=== PATIENT | female | born 1955 | race Caucasian/White ===

== ENCOUNTER → 2022-09-11 | Outpatient (CLI) | payer MEDICARE, SELFPAY ==
--- NOTE | 2022-09-11 17:35 | MRI_ITS ---
STUDY: MRI BRAIN WITH AND WITHOUT CONTRAST REASON FOR EXAM: Female, 67 years old. 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 IV 20mL CLARISCAN was administered for the contrast portion of the examination. COMPARISON: None. FINDINGS: Normal size of the ventricles and extra-axial spaces for the patient''s age. Mild periventricular white matter ischemic changes without mass effect or restricted diffusion. Normal bilateral basal ganglia. Normal thalami. There is no extra-axial fluid accumulation. Normal flow voids within the major intracranial circulation suggesting patency by spin echo criteria. Normal venous enhancement. There is no enhancing intra-axial or extra-axial abnormality. The pituitary is enlarged and there is a large poorly enhancing multilobulated nodule measuring approximately 2.1 x 1.6 x 1 cm consistent with pituitary adenoma,. The infundibulum is displaced slightly and the lesion extends cephalad to the level of the optic chiasm producing mild extrinsic compression more pronounced on the left. Normal tectal plate and pineal gland. Normal midbrain, janel and medulla. Normal cerebellum. Normal basal cisterns. Normal bilateral temporal bones. Normal bilateral internal auditory canals. Increased signal intensity noted within the left mastoid air cells which may be consistent with inflammatory disease No demonstrated orbital abnormality, within the constraints of a routine brain study. Minor mucosal thickening of the maxillary sinuses bilaterally. Normal calvarium and skull base. Normal visualized soft tissue structures. Normal visualized upper cervical spine. MRI/Brain W/WO Contrast IMPRESSION: Findings consistent with pituitary adenoma which extends cephalad to the level of the optic chiasm with extrinsic compression slightly more pronounced on the left. Mild periventricular white matter ischemic changes without evidence for acute infarct Electronically Signed: Ben Mancera MD at 19:34 EST ,
[2022-09-11 18:00] LABS: CREATININE FINGERSTICK < 0.9 mg/dL (0.55-1.02); EGFR FINGERSTICK > 60.0000 mL/min (>60)
== END | disposition home or self-care (01) ==
PROVIDERS: PCP Family Medicine; Referring Provider Ophthalmology; Visit Provider Ophthalmology
DX: H53.40 Unspecified visual field defects (principal); Z86.018 Personal history of other benign neoplasm
CPT/HCPCS: 70553; A9575